=== PATIENT | male | born 1950 | race Caucasian/White ===

== ENCOUNTER 2024-01-04 10:35 | Emergency (ER) | payer MEDICARE, MEDICAID ==
[~2024-01-04] VITALS: Ht 167.6 cm; Wt 59.8 kg
[2024-01-04] MEDS ORDERED: ACET-1084 PO (11:38)
[2024-01-04] MEDS: acetaminophen 325mg tablet PO ONE (11:39)
[2024-01-04 12:10] VITALS: BP 115/62; PULSE 75; RESP 14; TEMP 98.1; O2SAT 96
== END 2024-01-04 12:10 | disposition home or self-care (01) ==
LOC: ER 10:36
DX: M77.9 Enthesopathy, unspecified (principal); Z79.1 Long term (current) use of non-steroidal anti-inflammatories (NSAID)
CPT/HCPCS: 29125; 99283; L3908

== ENCOUNTER 2024-05-21 10:27 | Emergency (ER) | payer MEDICARE, MEDICAID ==
[~2024-05-21] VITALS: Ht 167.6 cm; Wt 65.5 kg
[2024-05-21 10:35] VITALS: BP 146/92; PULSE 122; RESP 18; O2SAT 97
[2024-05-21 12:02] VITALS: TEMP 98
== END 2024-05-21 12:03 | disposition home or self-care (01) ==
LOC: ER 10:27
DX: M25.561 Pain in right knee (principal)
CPT/HCPCS: 73564; 99283; A6449

== ENCOUNTER 2024-06-02 00:07 | Emergency (ER) | payer MEDICARE, MEDICAID ==
[~2024-06-02] VITALS: Ht 162.6 cm; Wt 63.6 kg
[2024-06-02 00:19] VITALS: BP 165/100; PULSE 100; RESP 16; TEMP 97.5; O2SAT 97
== END 2024-06-02 01:02 | disposition left against medical advice (07) ==
LOC: ER 00:07
DX: R52 Pain, unspecified (principal); Z53.21 Procedure and treatment not carried out due to patient leaving prior to being seen by health care provider